=== PATIENT | female | born 1950 | race Caucasian/White ===

== ENCOUNTER 2020-12-24 08:00 | Outpatient (REF) | payer OTHER, SELFPAY ==
--- NOTE | ~2020-12-24 | XR_ITS ---
EXAMINATION: XR ANKLE, LEFT CLINICAL INFORMATION: Left ankle pain COMPARISON: February 16, 2007 TECHNIQUE: AP, lateral, and mortise views of the left ankle. FINDINGS: There is osteopenia visualized bones. There is edema seen throughout the visualized portions of the left lower extremity, ankle, and foot. No acute fractures appreciated. Ankle mortise intact. No widening of the medial joint space. XR/XR ankle LT min 3V IMPRESSION: Osteopenia. Edema. No acute fracture identified.
[2020-12-24 11:30] LABS: MANUAL DIFF FLAG NO
[2020-12-24 11:43] LABS: Basophils Absolute Auto 0.1 X10*3/uL (0.0-0.2); Basophils Percent Auto 0.8 % (0-2); Eosinophils Absolute Auto 0.7 X10*3/uL (0.0-0.4); Eosinophils Percent Auto 6.7 % (0-4); Hematocrit 41.2 % (37-47); Hemoglobin 13.3 g/dl (12.0-16.0); Imm Gran Abs Auto 0.03 X10*3/uL (0.00-0.03); Imm Gran Pct Auto 0.3 % (0.0-0.4); Lymphocytes Absolute Auto 1.5 X10*3/uL (1.2-4.9); Lymphocytes Percent Auto 15.2 % (20-40); Mean Corpuscular HGB Conc 32.3 g/dl (31.0-35.0); Mean Corpuscular Hemoglobin 29.1 pg (27.0-33.0); Mean Corpuscular Volume 90.2 fL (80-98); Mean Platelet Volume 9.5 fL (9.4-12.3); Monocytes Absolute Auto 0.7 X10*3/uL (0.1-1.2); Monocytes Percent Auto 6.7 % (2-11); Neutrophils Absolute Auto 7.1 X10*3/uL (2.0-8.3); Neutrophils Percent Auto 70.3 % (45-73); Platelet Count 343 X10*3/uL (160-400); Red Blood Count 4.57 X10*6/uL (4.20-5.50); Red Cell Distribution Width 11.9 % (11.0-16.0); White Blood Count 10.2 X10*3/uL (4.8-10.8)
[2020-12-24 12:05] LABS: Alanine Aminotransferase 17 U/L (0-31); Albumin Level 4.3 g/dL (3.5-5.0); Alkaline Phosphatase 68 U/L (39-117); Anion Gap 12 (12-20); Aspartate Amino Transferase 21 U/L (5-31); Bilirubin Total 0.7 mg/dL (0.0-1.0); Blood Urea Nitrogen 10 mg/dL (9-16); Calcium 9.3 mg/dL (8.4-10.2); Carbon Dioxide 30 mmol/L (22-29); Chloride 101 mmol/L (96-108); Cholesterol 235 mg/dL; Estimated Glomerular Filt Rate > 60; Glucose Fasting 95 mg/dL (60-99); HDL Cholesterol 56 mg/dL; LDL Cholesterol Calculated 152 mg/dl; Potassium 4.1 mmol/L (3.3-5.1); Sodium 139 mmol/L (135-145); Triglycerides 139 mg/dL
[2020-12-24 12:14] LABS: Thyroid Stimulating Hormone 4.12 uIU/mL (0.32-4.0)
== END 2020-12-24 08:01 | disposition home or self-care (01) ==
LOC: HO.HMGCX 08:00
PROVIDERS: PCP Internal Medicine; Visit Provider Internal Medicine
DX: Z00.00 Encounter for general adult medical examination without abnormal findings (principal); M10.9 Gout, unspecified; E11.9 Type 2 diabetes mellitus without complications; E03.9 Hypothyroidism, unspecified; M25.572 Pain in left ankle and joints of left foot
CPT/HCPCS: 36415; 73610; 80053; 80061; 84443; 84550; 85025

== ENCOUNTER 2020-12-25 14:29 | Outpatient (REF) | payer OTHER, SELFPAY ==
--- NOTE | ~2020-12-25 | US_ITS ---
EXAMINATION: US VENOUS ULTRASOUND WITH DOPPLER LOWER EXTREMITY, LEFT CLINICAL INFORMATION: Left leg swelling COMPARISON: Previous exam December 2019 TECHNIQUE: Ultrasound of the deep veins is performed from the hip to the calf with compression sonography and color and pulse Doppler assessment. Spectral analysis with color-flow imaging is performed. FINDINGS: There is normal venous compression and respiratory variation and augmented flow. The visualized common femoral vein, superficial femoral vein, profunda femoral vein, popliteal vein, and the trifurcation region shows no evidence of deep venous thrombosis. There is no significant popliteal fossa cyst. US/US venous duplex LE LT IMPRESSION: No DVT demonstrated in the left lower extremity.
== END 2020-12-25 14:30 | disposition home or self-care (01) ==
LOC: HO.HMGCX 14:29
PROVIDERS: PCP Internal Medicine; Visit Provider Internal Medicine
DX: R60.0 Localized edema (principal)
CPT/HCPCS: 93971

== ENCOUNTER → 2021-07-28 10:10 | Outpatient (BNVA) | payer OTHER, SELFPAY | PROVIDERS: PCP Internal Medicine; Visit Provider Internal Medicine ==

== ENCOUNTER 2021-09-14 09:48 | Outpatient (REF) | payer MEDICARE, SELFPAY ==
--- NOTE | 2021-09-14 17:18 | PFT_ITS ---
Forced vital capacity 70%, FEV1 44%, [id number] is 15% and MVV 39%. Bronchodilator challenge not given because patient had used albuterol within 2 hours before the test. Lung volumes, total lung capacity 80%, residual volume 92%, normal. Diffusion capacity 38%. CONCLUSION: These findings are consistent with rather severe obstructive airway disorder. Clinical correlation is recommended. MD JAMEL Machuca/MODL / [id number]
== END 2021-09-14 09:49 | disposition home or self-care (01) ==
LOC: HO.RESP 09:48
PROVIDERS: PCP Internal Medicine; Visit Provider Internal Medicine
DX: R06.00 Dyspnea, unspecified (principal); R09.02 Hypoxemia; J44.9 Chronic obstructive pulmonary disease, unspecified; F17.200 Nicotine dependence, unspecified, uncomplicated; Z71.6 Tobacco abuse counseling
CPT/HCPCS: 94010; 94727; 94729; 99212

== ENCOUNTER 2021-10-07 09:05 | Outpatient (REF) | payer MEDICARE, SELFPAY ==
--- NOTE | ~2021-10-07 | MM_ITS ---
EXAMINATION: MM SCREENING DIGITAL BREAST TOMOSYNTHESIS, BILATERAL CLINICAL INFORMATION: Screening. Asymptomatic. The lifetime risk of breast cancer based on the Tyrer-Cuzick Model is 3%. COMPARISON: Mammography: 06/18/2019, 05/09/2018, 09/24/2015. TECHNIQUE: Digital breast tomosynthesis is performed in both the craniocaudal and mediolateral oblique views along with computer-aided detection (CAD). Synthesized 2D images are generated from the tomosynthesis. FINDINGS: There are scattered areas of fibroglandular density (ACR BI-RADS breast composition Category b). There is fine fibronodular parenchymal pattern similar to prior exams. There are no significant masses, abnormal calcifications, or other abnormalities. Regional parenchymal asymmetry left posterior upper outer quadrant is stable. No developing density. No significant changes. MM/MM tomosynthesis screening BI IMPRESSION: No mammographic evidence of malignancy. ASSESSMENT: BI-RADS 2: Benign RECOMMENDATION: Routine annual mammography screening. This patient's information was entered into a reminder system with a target due date for their next mammogram.
--- NOTE | ~2021-10-07 | MM_ITS ---
EXAMINATION: BONE DENSITOMETRY CLINICAL INDICATION: Asymptomatic menopausal state. COMPARISON: Baseline BD dated 12/15/2011. TECHNIQUE: Using a [employer] DXA System (software version: 13.1) manufactured by [employer], dual-energy x-ray absorptiometry was performed of the lumbar spine and left hip. The images are of good technical quality. Summary results are attached. FINDINGS: AP SPINE L1-L4: Current: BMD 0.864 g/cm2, Z-score -1.5, T-score -2.6, osteoporosis, 8.2% decrease from baseline (<5% change is not significant). Baseline: BMD 0.941 g/cm2. LEFT FEMUR, NECK: Current: BMD 0.779 g/cm2, Z-score -0.5, T-score -1.9, osteopenia. Baseline: BMD 0.861 g/cm2. LEFT FEMUR, TOTAL: Current: BMD 0.836 g/cm2, Z-score -0.2, T-score -1.4, osteopenia, 2.9% decrease from baseline (<5% change is not significant). Baseline: BMD 0.861 g/cm2. IDENTIFIED RISK FACTORS: Osteoporosis, tobacco use (current smoker), height loss, menopause. HISTORY OF FRACTURE: None listed. MEDICATIONS: Calcium supplements or multivitamin, vitamin D, calcitonin. MM/XR DEXA axial skeleton IMPRESSION: 1. DIAGNOSIS: Osteoporosis based on the lowest T-score value of -2.6 in the lumbar spine applying World Health Organization criteria. 2. 10- 10-YEAR FRACTURE RISK PREDICTION, FRAX: According to the guidelines, FRAX calculation should only be performed on patients in the osteopenia bone density category. Therefore, FRAX was not performed on this patient. 3. Treatment Recommendations: NOF guidelines recommend consideration for treatment in postmenopausal women and men age 50 and older presenting with the following: -A hip or vertebral (clinical or morphometric) fracture. -T-score less than or equal to -2.5 at the femoral neck or spine after appropriate evaluation to exclude secondary causes. -Low bone mass at the hip or spine and a 10-year fracture probability by FRAX of greater than or equal to 3% for hip fracture or greater than or equal to 20% for major osteoporotic fracture based on the [place] adapted WHO algorithm. 4. Other Recommendations: All treatment decisions require clinical judgment and consideration of individual patient factors, including patient preferences, comorbidities, previous drug use, risk factors not captured in the FRAX model (e.g. frailty, falls, vitamin D deficiency, increased bone turnover, interval significant decline in bone density) and possible under or overestimation of fracture risk by FRAX. Additional medical evaluation for secondary cause of low bone mineral density may be appropriate. FUTURE SCAN RECOMMENDATION: People with diagnosed cases of osteoporosis or at high risk for fracture should have regular bone mineral density tests. For patients eligible for Medicare, routine testing is allowed once every 2 years. The testing frequency can be increased to one year for patients who have rapidly progressing disease, those who are receiving or discontinuing medical therapy to restore bone mass, or have additional risk factors.
== END 2021-10-07 09:06 | disposition home or self-care (01) ==
LOC: HO.MAMMO 09:05
PROVIDERS: PCP Internal Medicine; Visit Provider Internal Medicine
DX: Z12.31 Encounter for screening mammogram for malignant neoplasm of breast (principal); Z13.820 Encounter for screening for osteoporosis; M81.0 Age-related osteoporosis without current pathological fracture; Z78.0 Asymptomatic menopausal state
CPT/HCPCS: 77063; 77067; 77080

== ENCOUNTER 2022-10-17 07:07 | Outpatient (REF) | payer MEDICARE, SELFPAY ==
[2022-10-17 11:52] LABS: MANUAL DIFF FLAG NO
[2022-10-17 12:06] LABS: Basophils Percent Auto 0.3 % (0-2); Eosinophils Absolute Auto 0.4 X10*3/uL (0.0-0.4); Eosinophils Percent Auto 6.3 % (0-4); Hematocrit 43.6 % (37.0-47.0); Imm Gran Abs Auto 0.02 X10*3/uL (0.00-0.03); Imm Gran Pct Auto 0.3 % (0.0-0.4); Lymphocytes Absolute Auto 1.9 X10*3/uL (1.2-4.9); Lymphocytes Percent Auto 31.9 % (20-40); Mean Corpuscular HGB Conc 32.1 g/dl (31.0-35.0); Mean Corpuscular Hemoglobin 27.4 pg (27.0-33.0); Mean Corpuscular Volume 85.3 fL (80.0-98.0); Mean Platelet Volume 10.2 fL (9.4-12.3); Monocytes Absolute Auto 0.7 X10*3/uL (0.1-1.2); Monocytes Percent Auto 12.5 % (2-11); Neutrophils Absolute Auto 2.9 x10*3/uL (2.0-8.3); Neutrophils Percent Auto 48.7 % (45-73); Platelet Count 260 X10*3/uL (160-400); Red Blood Count 5.11 X10*6/uL (4.20-5.50); Red Cell Distribution Width 12.4 % (11.0-16.0); White Blood Count 5.9 X10*3/uL (4.8-10.8)
[2022-10-17 12:24] LABS: Alanine Aminotransferase 41 U/L (0-31); Albumin Level 3.9 g/dL (3.5-5.0); Alkaline Phosphatase 72 U/L (39-117); Anion Gap 14 (12-20); Aspartate Amino Transferase 28 U/L (5-31); Bilirubin Direct 0.2 mg/dL (0.0-0.5); Bilirubin Total 0.7 mg/dL (0.0-1.0); Blood Urea Nitrogen 8 mg/dL (9-16); Carbon Dioxide 28 mmol/L (22-29); Chloride 100 mmol/L (96-108); Cholesterol 185 mg/dL; Estimated Glomerular Filt Rate > 60; Glucose Fasting 108 mg/dL (60-99); HDL Cholesterol 51 mg/dL; LDL Cholesterol Calculated 105 mg/dl; Potassium 4.1 mmol/L (3.3-5.1); Sodium 138 mmol/L (135-145); Total Protein 6.5 g/dL (6.5-8.0); Triglycerides 149 mg/dL
[2022-10-17 12:35] LABS: Estimated Average Glucose 128 mg/dL; Hemoglobin A1c % 6.1 %
== END 2022-10-17 07:08 | disposition home or self-care (01) ==
LOC: HO.HMGCLDS 07:07
PROVIDERS: PCP Internal Medicine; Visit Provider Internal Medicine
DX: R53.83 Other fatigue (principal); E78.5 Hyperlipidemia, unspecified; E11.9 Type 2 diabetes mellitus without complications
CPT/HCPCS: 36415; 80051; 80061; 80076; 82565; 82947; 83036; 84520; 85025

== ENCOUNTER 2024-07-08 11:53 | Outpatient (REF) | payer MEDICARE, SELFPAY ==
[2024-07-08 13:40] LABS: Estimated Average Glucose 117 mg/dL; Hemoglobin A1C 138.7991 umol/L; Hemoglobin A1c % 5.7 % (<6.0); Total Hemoglobin (HGBA1C) 3618.0329 umol/L
== END 2024-07-08 11:54 | disposition home or self-care (01) ==
LOC: HO.HMGCLDS 11:53
PROVIDERS: PCP Internal Medicine; Visit Provider Internal Medicine
DX: E11.9 Type 2 diabetes mellitus without complications (principal)
CPT/HCPCS: 36415; 83036

== ENCOUNTER 2024-10-11 09:40 | Outpatient (REF) | payer MEDICARE, SELFPAY ==
[2024-10-11 13:20] LABS: MANUAL DIFF FLAG NO
[2024-10-11 13:29] LABS: Basophils Absolute Auto 0.1 X10*3/uL (0.0-0.2); Basophils Percent Auto 1.7 % (0-2); Eosinophils Absolute Auto 0.6 X10*3/uL (0.0-0.4); Eosinophils Percent Auto 7.5 % (0-4); Hematocrit 45.6 % (37.0-47.0); Hemoglobin 14.5 g/dl (12.0-16.0); Imm Gran Abs Auto 0.01 X10*3/uL (0.00-0.03); Imm Gran Pct Auto 0.1 % (0.0-0.4); Lymphocytes Percent Auto 26.5 % (20-40); Mean Corpuscular HGB Conc 31.8 g/dl (31.0-35.0); Mean Corpuscular Hemoglobin 27.9 pg (27.0-33.0); Mean Corpuscular Volume 87.7 fL (80.0-98.0); Mean Platelet Volume 9.4 fL (9.4-12.3); Monocytes Absolute Auto 0.6 X10*3/uL (0.1-1.2); Monocytes Percent Auto 7.2 % (2-11); Neutrophils Absolute Auto 4.3 x10*3/uL (2.0-8.3); Platelet Count 346 X10*3/uL (160-400); Red Cell Distribution Width 12.7 % (11.0-16.0); White Blood Count 7.6 X10*3/uL (4.8-10.8)
[2024-10-11 13:47] LABS: Estimated Average Glucose 114 mg/dL; Hemoglobin A1C 141.9991 umol/L; Hemoglobin A1c % 5.6 % (<6.0); Total Hemoglobin (HGBA1C) 3807.7792 umol/L
[2024-10-11 13:48] LABS: Alanine Aminotransferase 16 U/L (0-31); Albumin Level 4.2 g/dL (3.5-5.0); Alkaline Phosphatase 69 U/L (39-117); Anion Gap 12 (12-20); Aspartate Amino Transferase 22 U/L (5-31); Bilirubin Total 0.6 mg/dL (0.0-1.0); Blood Urea Nitrogen 6 mg/dL (9-16); Calcium 9.7 mg/dL (8.4-10.2); Carbon Dioxide 30 mmol/L (22-29); Chloride 102 mmol/L (96-108); Cholesterol 322 mg/dL (<200); Estimated Glomerular Filt Rate > 60; Glucose Fasting 111 mg/dL (60-99); HDL Cholesterol 62 mg/dL (>40); LDL Cholesterol Calculated 232 mg/dL (<100); Potassium 4.4 mmol/L (3.3-5.1); Sodium 140 mmol/L (135-145); Total Protein 7.8 g/dL (6.5-8.0); Triglycerides 141 mg/dL (<150)
== END 2024-10-11 09:41 | disposition home or self-care (01) ==
LOC: HO.HMGCLDS 09:40
PROVIDERS: PCP Internal Medicine; Visit Provider Internal Medicine
DX: Z00.00 Encounter for general adult medical examination without abnormal findings (principal); E78.5 Hyperlipidemia, unspecified; E11.9 Type 2 diabetes mellitus without complications; R53.83 Other fatigue
CPT/HCPCS: 36415; 80053; 80061; 83036; 85025

== ENCOUNTER 2025-02-27 10:59 | Outpatient (AMB) | payer MEDICARE, SELFPAY ==
--- NOTE | 2025-02-27 10:56 | A.OFFPC_ITS ---
Vital Signs 02/27/25 11:02 Height 5 ft 6.69 in Weight 172 lb 8 oz BMI 27.3 BP 130/86 Blood Pressure Location Rt brachial Position Sitting Respiration 20 Pulse 83 Pulse Source Pulse Oximeter Temp 97.7 F Temp Source Temporal Artery Scan Pulse Oximetry (%) 93 Oxygen Delivery Method Room Air Intake Visit Reasons: Establish Care - see comments Chain Puller Required: No Accompanied by: Self / Same As Patient Allergies Sulfa (Sulfonamide Antibiotics) (SULFA (SULFONAMIDE ANTIBIOTICS)) Allergy (Severe, Verified 02/27/25 11:20) HIVES, swelling, hives Medication List - Last Reconciled 02/27/25 by Romina Cain PA-C albuterol sulfate 90 mcg/actuation inhalation Q4H clonazepam mg PO fluticasone propion-salmeterol 100-50 mcg/dose (Wixela Inhub) inhalation ipratropium-albuterol 0.5 mg-3 mg(2.5 mg base)/3 mL mL inhalation paroxetine HCl 20 mg PO DAILY Tobacco use date assessed: 02/27/25 Fall risk assessment: No Falls in past year Last assessed Fall Risk: 02/27/25 Dental Screening Dental Screen Date: 02/27/25 Did you have a dental visit in the last 12 months?: Yes Did you have a dental problem in the last 6 months where you did not have access to dental care?: No Was dental information given to patient?: Patient has dentist HPI Establish Care - see comments HPI Details The patient is a 74-year-old female presenting for the establishment of care. The patient has a history of anxiety and depression, managed with paroxetine and clonazepam, which she takes as needed. She has been under the care of Dr. Wilcox for these conditions. The patient has been diagnosed with prediabetes, with recent lab results showing a hemoglobin A1c of 5.6 and fasting glucose of 111 mg/dL. She has hyperlipidemia, with a total cholesterol of 322 mg/dL and LDL of 232 mg/dL, and prefers dietary management over medication. The patient smokes approximately one pack of cigarettes per week and reports occasional wheezing. For preventative care, she had a mammogram and bone density scan in 2021 and has had two colonoscopies in the past. Social History - Tobacco use: Smokes approximately one pack per week - Dietary habits: Prefers managing cristal sterol through diet rather than medication [facility] Medical History Osteoporosis determined by dual energy x-ray photon absorptiometry (DEXA) scan of hip (~10/07/21) History of mammogram (~10/07/21) Hyperlipidemia Prediabetes Depression Anxiety Establishing care with new doctor, encounter for Smoker Exercise hypoxemia COPD (chronic obstructive pulmonary disease) History of right inguinal hernia Surgical History History of colonoscopy Family History Mother No problems noted. Father No problems noted. Social History Housing: Condominium Alcohol intake: current Alcohol intake frequency: does not drink Patient Tobacco Use Status: Current everyday Tobacco user Cigarettes Per Day: 5 service: No Current occupational status: retired Cognitive needs: No Hearing needs: No Vision needs: Yes (reading glasses) Questionnaire PHQ-9 Over the last 2 weeks, how often have you been bothered by any of the following problems? 1. Little interest or pleasure in doing things: not at all 2. Feeling down, depressed, or hopeless: not at all 3. Trouble falling or staying asleep, or sleeping too much: not at all 4. Feeling tired or having little energy: not at all 5. Poor appetite or overeating: not at all 6. Feeling bad about yourself - or that you are a failure or have let yourself or your family down: not at all 7. Trouble concentrating on things, such as reading the newspaper or watching television: not at all 8. Moving or speaking so slowly that other people could have noticed. Or the opposite - being so fidgety or restless that you have been moving around a lot more than usual: not at all 9. Thoughts that you would be better off or of hurting yourself in some way: not at all Total score: 0 Depression Screening Interpretation: Negative Depression Screening Done: Yes 58528 - PHQ-9 Billing: Yes Source: Developed by Drs. Rufus Becker, Laila Marino, Geo Santoyo and colleagues, with an educational jerman from [employer]. Thrive Questionnaire Date Thrive assessed: 02/27/25 I am a: Patient What is your living situation today?: I have a steady place to live Within the past 12 months, did the food you bought not last and you didn't have the money to get more?: Never true Within the past 12 months, did you worry whether your food would run out before you got money to buy more?: Never true Do you have trouble paying for medicines?: No Do you have trouble getting transportation to medical appointments?: No Do you have trouble paying your heating and electricity bill?: No Do you have trouble taking care of your child, family member or friend?: No Do you have trouble with day-to-day activities such as bathing, preparing meals, shopping, managing finances, etc.?: No Are you currently unemployed and looking for a job?: No Are you interested in more education?: No Please select the resources that you would like help with: None Currently or been in a relationship where the following occur: No concerns reported THRIVE Score: 0 AUDIT C Alcohol Use Questionnaire (AUDIT-C) 1. How often do you have a drink containing alcohol?: Never 3. How often do you have six or more drinks on one occasion?: Never Total Score: 0 Score Reviewed/Action Taken: No MINNA-7 AMB Questionnaire MINNA-7 Date MINNA - 7 assessed: 02/27/25 Feeling nervous, anxious, or on edge: 0 = Not at all Not being able to stop or control worryin = Not at all Worrying too much about different things: 0 = Not at all Trouble relaxin = Not at all Being so restless that it is hard to sit still: 0 = Not at all Becoming easily annoyed or irritable: 0 = Not at all Feeling afraid as if something awful might happen: 0 = Not at all Total MINNA-7 score (0-4 normal; 5-9 mild; 10-14 moderate; 15-21 severe): 0 Source: Developed by Drs. Rufus Becker, Laila Marino, Geo Santoyo and colleagues, with an educational jerman from [employer]. MINNA-7 Assessment Billing MINNA-7 Assessment Tool: MINNA-7 Assessment 92424 Review of Systems Const Details: - Psychiatric: Reports anxiety and depression, managed with medication - Endocrine: Reports prediabetes, with recent improvement in hemoglobin A1c - Respiratory: Reports occasional wheezing, denies dyspnea Physical exam (Primary Care) Vital Signs: Last Vital Signs Temp 97.7 F 02/27/25 11:02 Pulse 83 02/27/25 11:02 Resp 20 02/27/25 11:02 BP 130/86 02/27/25 11:02 Pulse Ox 93 02/27/25 11:02 Oxygen Delivery Method Room Air 02/27/25 11:02 Care Plan Goal for BP management: <140/90 at Goal BMI result Body Mass Index 27.3 BMI Assessment/Plan discussion: High BMI High, discussed plan: lifestyle, weight reduction, dietary, physical activity and alcohol moderation Tobacco/Smoking Status: Tobacco use Status Tobacco use date assessed 02/27/25 02/27/25 10:59 Patient Tobacco Use Status Current everyday Tobacco 02/27/25 11:12 PHQ-9: PHQ-9 Score PHQ-9: Total score 0 02/27/25 11:12 Depression Screening Interpretation: Negative Thrive Assessment: Date of Thrive Assessment Date Thrive assessed 02/27/25 02/27/25 10:59 Currently or been in a relationship where the following occur: No concerns reported Const Other: Appearance: Alert. Oriented X3. No acute distress. Head: Normal external exam. Normocephalic. Atraumatic. Eyes: Pupils are equal, round, and reactive to light. Extraocular movements intact. Conjunctiva and sclera normal. Eyelids normal. Ears: External auditory canal normal. Tympanic membranes normal. Throat: Pharynx normal. Uvula midline. Moist mucous membranes. Neck: Normal inspection. Neck supple. Full range of motion. Cardiovascular: Normal heart rate and rhythm. Heart sound normal. No murmurs noted. Pulses normal throughout. Respiratory: No respiratory distress. Painless inspiration. Breath sounds normal. Wheezing noted. Chest nontender. No accessory muscle usage noted or decreased air movement noted. Abdomen: Soft and nontender. Back: Full range of motion noted. Skin: Skin warm and dry. Normal skin color. Normal skin turgor. No rashes /lesions/lacerations noted. Extremities: No lower extremity edema. Extremities exhibit normal range of motion. Extremities nontender. Neuro: Oriented X 3. No motor deficit. No sensory deficit. Reflexes normal. Results Reviewed Results Reviewed: - Labs: Hemoglobin A1c 5.6, fasting glucose 111 mg/dL - Labs: Total cholesterol 322 mg/dL, LDL cholesterol 232 mg/dL Coding Level of Care Code New Pt Level 4 (28232) Complex EM visit Add On G2211 Diagnoses Establishing care with new doctor, encounter for Z76.89 Anxiety F41.9 Depression F32.A Prediabetes R73.03 Hyperlipidemia E78.5 Smoker F17.200 Additional Codes PHQ-9 - 60534 - PHQ-9 Billing: Yes ([id number]) MINNA-7 Assessment Billing - MINNA-7 Assessment Tool: MINNA-7 Assessment 10838 ([id number]) Assessment & Plan Assessment & Plan (1) Establishing care with new doctor, encounter for: Code(s): Z76.89 - Persons encountering health services in other specified circumstances Category: Medical (2) Anxiety: Code(s): F41.9 - Anxiety disorder, unspecified Category: Medical Plan: The patient is currently prescribed paroxetine and clonazepam for anxiety management, with clonazepam taken as needed. The plan is to the clonazepam dosage to half to assess tolerance and effectiveness. Patient was receiving 45 of the 0.5 clonazepam for a 30 day period. We discussed about reducing this in half we will send a 20 tablet of the 0.5 mg clonazepam for this month and we will continue weaning lower next month patient should receive 10 tablets of 0.5 clonazepam. Condition is chronic and stable patient agrees with this plan will continue to monitor (3) Depression: Code(s): F32.A - Depression, unspecified Category: Medical Plan: Depression is managed with paroxetine, and the patient is advised to continue current medication regimen. Condition is chronic and stable will continue to monitor. (4) Prediabetes: Code(s): R73.03 - Prediabetes Category: Medical Plan: The patient's hemoglobin A1c has improved to 5.6, indicating better control of blood glucose levels. Continued monitoring of blood glucose levels and lifestyle modifications are recommended. Condition is chronic and stable will continue to monitor. (5) Hyperlipidemia: Code(s): E78.5 - Hyperlipidemia, unspecified Category: Medical Plan: The patient has hyperlipidemia with a total cholesterol of 322 mg/dL and LDL of 232 mg/dL. She prefers dietary management over medication, and educational materials on dietary changes to lower cholesterol will be provided. Condition is chronic and stable will continue to monitor. (6) Smoker: Comment: I TALKED TO HER ABOUT LUNG SCREENING PROGRAM. SHE DOES NOT WANT ANYTHING TO DO WITH THAT.COUNSELED HER TO QUIT SMOKING COMPLETELY. SHE DEFINITELY FINDS IT HARD AND NOT TO PREPARED TO QUIT COMPLETELY. DOWN TO 5 CIGARETTES A DAY . Code(s): F17.200 - Nicotine dependence, unspecified, uncomplicated Category: Social Hx Plan: The patient smokes approximately one pack of cigarettes per week and reports occasional wheezing. Smoking cessation resources and counseling are recommended to reduce respiratory symptoms and overall health risks. Plan Plan Patient was informed and verbally consented to the use of an ambient scribe for clinic note documentation during this visit. 1. Anxiety The patient is currently prescribed paroxetine and clonazepam for anxiety management, with clonazepam taken as needed. The patient is currently prescribed paroxetine and clonazepam for anxiety management, with clonazepam taken as needed. The plan is to the clonazepam dosage to half to assess tolerance and effectiveness. Patient was receiving 45 of the 0.5 clonazepam for a 30 day period. We discussed about reducing this in half we will send a 20 tablet of the 0.5 mg clonazepam for this month and we will continue weaning lower next month patient should receive 10 tablets of 0.5 clonazepam. Condition is chronic and stable patient agrees with this plan will continue to monitor 2. Depression Depression is managed with paroxetine, and the patient is advised to continue current medication regimen. 3. Prediabetes The patient's hemoglobin A1c has improved to 5.6, indicating better control of blood glucose levels. Continued monitoring of blood glucose levels and lifestyle modifications are recommended. 4. Hyperlipidemia The patient has hyperlipidemia with a total cholesterol of 322 mg/dL and LDL of 232 mg/dL. She prefers dietary management over medication, and educational materials on dietary changes to lower cholesterol will be provided. 5. Tobacco Use The patient smokes approximately one pack of cigarettes per week and reports occasional wheezing. Smoking cessation resources and counseling are recommended to reduce respiratory symptoms and overall health risks. During the visit, we discussed the management of anxiety and depression with current medications, and the possibility of reducing clonazepam dosage was considered. We reviewed the patient's prediabetes status, noting improvement in hemoglobin A1c, and emphasized the importance of lifestyle modifications. For hyperlipidemia, we discussed dietary changes to manage cholesterol levels without medication. Smoking cessation was recommended to address respiratory symptoms and improve overall health. Medications: New clonazepam 0.5 mg PO DAILY PRN 20 tabs 0RF anxiety Patient Instructions: - Continue taking paroxetine as prescribed for anxiety and depression. - Consider reducing clonazepam dosage after consulting with Dr. Storm. - Monitor blood glucose levels regularly and maintain a healthy diet to manage prediabetes. - Follow dietary recommendations to lower cholesterol levels. - Seek smoking cessation resources to reduce smoking and improve respiratory health.
[2025-02-27 11:02] VITALS: BP 130/86; PULSE 83; RESP 20; TEMP 36.5; O2SAT 93; BMI 27.3
--- OUTSIDE RECORDS SUMMARY | 2025-02-27 11:41 | XMS_ITS | Patient Health Record ---
Author Organization [facility] Address [address] [place] [id number] Care Team Providers Care Air Surveillance Operator Name Role Phone Emily (RETIRED) Rufus LEON Primary Care Provid er Unavailable Rufus Dunne Unavailable [phone] Reason For Referral No Information Plan Of Treatment No Information
== END 2025-02-27 11:30 | disposition home or self-care (01) ==
LOC: HO.HMCSH 10:59
PROVIDERS: PCP Physician Assistant Medical; Visit Provider Physician Assistant Medical
DX: Z76.89 Persons encountering health services in other specified circumstances (principal); F41.9 Anxiety disorder, unspecified; F32.A Depression, unspecified; R73.03 Prediabetes; E78.5 Hyperlipidemia, unspecified; F17.200 Nicotine dependence, unspecified, uncomplicated

== ENCOUNTER → 2025-02-27 10:59 | Outpatient (BNVA) | payer MEDICARE, SELFPAY | PROVIDERS: PCP Physician Assistant Medical; Visit Provider Physician Assistant Medical | DX: R73.03 Prediabetes (principal); F41.9 Anxiety disorder, unspecified; F32.A Depression, unspecified; E78.5 Hyperlipidemia, unspecified; F17.210 Nicotine dependence, cigarettes, uncomplicated; Z76.89 Persons encountering health services in other specified circumstances | CPT/HCPCS: 96127; 99202 ==

== ENCOUNTER 2025-07-08 08:53 | Outpatient (AMB) | payer MEDICARE, SELFPAY ==
--- NOTE | 2025-07-08 08:37 | MHC.PC.OV ---
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 - The patient reports a long-standing history of anxiety, which has been present since childhood following her mother's murder. - She was previously on Klonopin but was taken off it by another provider and has been trying to remain off the medication. - Currently, she is on paroxetine for anxiety but expresses a desire to discontinue it. - The patient's cholesterol is slightly elevated, which she attributes to a diet high in butter and low in meat. - She refuses mammogram screenings, stating her age as a reason. Social History - Diet: The patient reports eating a lot of butter and not much meat, as she does not trust it. - Functional Status: The patient reports she stays home a lot and does not drive at night. - Childhood History: The patient reports significant childhood trauma; her mother was murdered, and she was in the foster care system until around age 3. - Health Beliefs: The patient expresses an aversion to taking medications and a preference for natural approaches, influenced by her upbringing. Results - Labs: Cholesterol is noted to be a little high. [facility] Medical History Osteoporosis determined by dual energy x-ray photon absorptiometry (DEXA) scan of hip (~10/07/21) History of mammogram (~10/07/21) Hyperlipidemia Prediabetes Depression Anxiety Establishing care with new doctor, encounter for Smoker Exercise hypoxemia COPD (chronic obstructive pulmonary disease) History of right inguinal hernia Surgical History History of colonoscopy Family History Mother No problems noted. Father No problems noted. Social History [facility] Alcohol intake: current Alcohol intake frequency: does not drink Patient Tobacco Use Status: Current everyday Tobacco user Cigarettes Per Day: 5 service: No Current occupational status: retired Cognitive needs: No Hearing needs: No Vision needs: Yes (reading glasses) Questionnaire PHQ-9 Over the last 2 weeks, how often have you been bothered by any of the following problems? 1. Little interest or pleasure in doing things: not at all 2. Feeling down, depressed, or hopeless: not at all 3. Trouble falling or staying asleep, or sleeping too much: not at all 4. Feeling tired or having little energy: not at all 5. Poor appetite or overeating: not at all 6. Feeling bad about yourself - or that you are a failure or have let yourself or your family down: not at all 7. Trouble concentrating on things, such as reading the newspaper or watching television: not at all 8. Moving or speaking so slowly that other people could have noticed. Or the opposite - being so fidgety or restless that you have been moving around a lot more than usual: not at all 9. Thoughts that you would be better off or of hurting yourself in some way: not at all Total score: 0 Depression Screening Interpretation: Negative Depression Screening Done: Yes 94187 - PHQ-9 Billing: Yes Source: Developed by Drs. Rufus Becker, Laila Marino, Geo Santoyo and colleagues, with an educational jerman from [employer]. Thrive Questionnaire Date Thrive assessed: 02/27/25 I am a: Patient What is your living situation today?: I have a steady place to live Within the past 12 months, did the food you bought not last and you didn't have the money to get more?: Never true Within the past 12 months, did you worry whether your food would run out before you got money to buy more?: Never true Do you have trouble paying for medicines?: No Do you have trouble getting transportation to medical appointments?: No Do you have trouble paying your heating and electricity bill?: No Do you have trouble taking care of your child, family member or friend?: No Do you have trouble with day-to-day activities such as bathing, preparing meals, shopping, managing finances, etc.?: No Are you currently unemployed and looking for a job?: No Are you interested in more education?: No Please select the resources that you would like help with: None Currently or been in a relationship where the following occur: No concerns reported THRIVE Score: 0 AUDIT C Alcohol Use Questionnaire (AUDIT-C) 1. How often do you have a drink containing alcohol?: Never 3. How often do you have six or more drinks on one occasion?: Never Total Score: 0 Score Reviewed/Action Taken: No MINNA-7 AMB Questionnaire MINNA-7 Date MINNA - 7 assessed: 02/27/25 Feeling nervous, anxious, or on edge: 0 = Not at all Not being able to stop or control worryin = Not at all Worrying too much about different things: 0 = Not at all Trouble relaxin = Not at all Being so restless that it is hard to sit still: 0 = Not at all Becoming easily annoyed or irritable: 0 = Not at all Feeling afraid as if something awful might happen: 0 = Not at all Total MINNA-7 score (0-4 normal; 5-9 mild; 10-14 moderate; 15-21 severe): 0 Source: Developed by Drs. Rufus Becker, Laila Marino, Geo Santoyo and colleagues, with an educational jerman from [employer]. MINNA-7 Assessment Billing MINNA-7 Assessment Tool: MINNA-7 Assessment 20828 Review of Systems Narrative Review of Systems - General: Reports feeling pretty good. - Psychiatric: Reports suffering from anxiety that has always been present. Physical exam (Primary Care) Vital Signs: Last Vital Signs Temp 97.3 F 07/08/25 08:54 Pulse 100 07/08/25 08:54 Resp 16 07/08/25 08:54 BP 127/73 07/08/25 08:54 Pulse Ox 92 07/08/25 08:54 Oxygen Delivery Method Room Air 07/08/25 08:54 BMI result Body Mass Index 26.2 Tobacco/Smoking Status: Tobacco use Status Tobacco use date assessed 02/27/25 07/08/25 08:40 Patient Tobacco Use Status Current everyday Tobacco 07/08/25 08:40 PHQ-9: PHQ-9 Score PHQ-9: Total score 0 07/08/25 08:59 Depression Screening Interpretation: Negative Thrive Assessment: Date of Thrive Assessment Date Thrive assessed 02/27/25 07/08/25 08:40 Currently or been in a relationship where the following occur: No concerns reported Narrative Physical Exam General: Cooperative and healthy appearing Nutritional Appearance: Well nourished Orientation/consciousness: Patient oriented x3 Limitations: No limitations Head: Normal to inspection General: Appearance normal, both eyes and all related structures Neck: Normal visual inspection Chest: Normal palpation of entire chest wall Respiratory: Normal respiratory effort Neurology: Patient oriented x3 Office Procedures Flu Questionnaire Does the patient have a severe egg allergy?: No Does the patient have severe life threatening allergies?: No Does the patient have a fever or illness today?: No Has the patient ever had Guillain-[place] Syndrome?: No Has the patient ever had any past reaction to a flu shot?: No Immunizations Fluarix [id number] (PF) 45 mcg (15 mcg x 3)/0.5 mL IM syringe Performing Provider: Gideon Sidhu MD [facility] Documented (not given) by: SAM Garcia on 07/08/25 09:00 Reason Not Given: Patient Refused Coding Level of Care Code Est Pt Level 4 (14096) Complex EM visit Add On G2211 Diagnoses Anxiety F41.9 Additional Codes MINNA-7 Assessment Billing - MINNA-7 Assessment Tool: MINNA-7 Assessment 42717 ([id number]) PHQ-9 - 32250 - PHQ-9 Billing: Yes ([id number]) Assessment & Plan Assessment & Plan (1) Anxiety: Code(s): F41.9 - Anxiety disorder, unspecified Category: Medical Plan Plan - Anxiety: Continue taking paroxetine (Paxil). - Health Maintenance: The patient declined a mammogram. - Follow-up: The patient will return for a follow-up visit in 3 months and has a physical scheduled for September. Discussion Notes I met with the patient to establish care. We discussed her longstanding anxiety and desire to stop medications. I recommended she continue taking Paxil. We reviewed her cholesterol, which is slightly high, but I am not concerned at this time. The patient declined a mammogram. We will follow up in 3 months, and she has a physical exam scheduled for September. Patient Instructions - Continue taking your Paxil medication as recommended. - We will see you back in the office in 3 months. - Please come to your scheduled physical exam in September. Orders: Orders Influenza [id number] Immunization Today Z23 - Encounter for immunization
[2025-07-08 08:54] VITALS: BP 127/73; PULSE 100; RESP 16; TEMP 36.3; O2SAT 92; BMI 26.2
--- OUTSIDE RECORDS SUMMARY | 2025-07-08 18:23 | XMS_ITS | Patient Health Record ---
Author Organization [facility] Address [address] [place] [id number] Care Team Providers Care Sand Blaster Name Role Phone Emily (RETIRED) Rufus LEON Primary Care Provid er Unavailable Rufus Dunne Unavailable [phone] Reason For Referral No Information Plan Of Treatment No Information
== END 2025-07-08 09:30 | disposition home or self-care (01) ==
LOC: HO.HMCSH 08:53
PROVIDERS: PCP Physician Assistant Medical; Visit Provider Internal Medicine
DX: Z23 Encounter for immunization (principal); F41.9 Anxiety disorder, unspecified

== ENCOUNTER → 2025-07-08 08:53 | Outpatient (BNVA) | payer MEDICARE, SELFPAY | PROVIDERS: PCP Physician Assistant Medical; Visit Provider Internal Medicine | DX: R73.03 Prediabetes (principal); F41.9 Anxiety disorder, unspecified; E78.00 Pure hypercholesterolemia, unspecified; Z28.89 Immunization not carried out for other reason; Z79.899 Other long term (current) drug therapy | CPT/HCPCS: 90471; 96127; 99212 ==